=== PATIENT | female | born 2000 | race Caucasian/White ===

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

== ENCOUNTER 2019-02-18 07:50 | Emergency (ER) | payer MEDICAID, OTHER ==
[~2019-02-18] VITALS: Ht 162.6 cm; Wt 70.0 kg
[~2019-02-18 07:50] MED LIST changes: +SERT25TA PO
[2019-02-18 07:53] VITALS: BP 110/68
--- NOTE | 2019-02-18 08:01 | NUR ---
PT STATES "MY BOYFRIEND AND I LIVE IN A TENT AND I ASKED HIM TO GET ME WATER THIS MORNING AND HE DIDNT. IM CONCERNED IM DEHYDRATED" PT IS 9 WKS PER HER REPORT. PT DENIES SOB, CP, DIZZINESS
--- NOTE | 2019-02-18 09:21 | NUR ---
FHT ASSESSED BY L/D RN.
--- NOTE | 2019-02-18 11:32 | NUR ---
PT BACK FROM IMAGING, NAD NOTED. AWAITIN QUANT RESULTS, NO OTHER NEEDS
== END 2019-02-18 11:57 | disposition home or self-care (01) ==
LOC: ED 10:56
DX: O26.891 Other specified pregnancy related conditions, first trimester (principal); R55 Syncope and collapse; E86.0 Dehydration; G40.909 Epilepsy, unspecified, not intractable, without status epilepticus; Z3A.09 9 weeks gestation of pregnancy
CPT/HCPCS: 36415; 76801; 84702; 93005; 99284

== ENCOUNTER 2019-07-02 10:35 | Emergency (ER) | payer MEDICAID ==
[~2019-07-02] VITALS: Ht 162.6 cm; Wt 76.0 kg
[2019-07-02 10:59] VITALS: BP 125/64
--- NOTE | 2019-07-02 11:57 | NUR ---
[employer] DRIVER: PT AMBULATORY WITH STEADY GAIT TO ROOM FROM LOBBY AT THIS TIME.
--- NOTE | 2019-07-02 12:29 | NUR ---
PT SAME TO ED TO BE TESTED FOR STD. 24 WEEKS . PT PARTNER IS SHOWING SIGNS OF STD. PT CONNECTED TO MONITORING. UA COLLECTED AND SENT TO LAB. PT DENIES ANY SYMPTOMS.
[2019-07-02 12:34] LABS: BASOPHILS # (AUTO) 0.01 x10^3/uL (0-0.3); BASOPHILS % (AUTO) 0 % (0-1); EOSINOPHILS # (AUTO) 0.08 x10^3/uL (0-0.8); EOSINOPHILS % (AUTO) 1 % (1-7); LYMPHOCYTES # (AUTO) 1.39 x10^3/uL (1-6.1); LYMPHOCYTES % (AUTO) 22 % (22-44); MD NO; MEAN CORPUSCULAR HEMOGLOBIN 30.2 pg (27.0-34.8); MEAN CORPUSCULAR HGB CONC 34.3 g/dL (32.4-35.8); MEAN PLATELET VOLUME 7.9 fL (7.4-10.4); MONOCYTES # (AUTO) 0.28 x10^3/uL (0-1.4); MONOCYTES % (AUTO) 5 % (2-9); NEUTROPHILS % (AUTO) 72 % (42-75); PLATELET COUNT 316 x10^3/uL (130-400); RED BLOOD COUNT 3.74 x10^6/uL (3.82-5.3); RED CELL DISTRIBUTION WIDTH 15.7 % (9.6-15.2)
[2019-07-02 12:43] LABS: ALBUMIN 2.8 g/dL (3.4-5.0); ANION GAP 6 mmol/L (5-15); CALCIUM 8.7 mg/dL (8.5-10.1); CHLORIDE 109 mmol/L (98-107); CREATININE 0.73 mg/dL (0.55-1.02)
[2019-07-02 12:53] LABS: MICROSCOPIC NOT IND
--- NOTE | 2019-07-02 13:17 | NUR ---
THIS RN AT BEDSIDE DURING PELVIC EXAM WITH PROVIDER. PROVIDER COLLECTED SPECIMENS AND TOOK TO LAB HIMSELF. PT TOLLERATED WELL.
[2019-07-02] MEDS ORDERED: CEFTRIAXONE 250 MG IM ONE (13:30)
[2019-07-02] MEDS ORDERED: AZITHROMYCIN 250 MG TABLET ONE (13:30)
[2019-07-02] MEDS ORDERED: AZITHROMYCIN 500 MG TABLET PO ONE (13:30)
[2019-07-02] MEDS ORDERED: CEFTRIAXONE 250 MG ONE (13:30)
[2019-07-02] MEDS ORDERED: LIDOCAINE-MPF 1%, 5ML ONE (13:31)
--- NOTE | 2019-07-02 13:39 | NUR ---
[facility] ADMIN PER APR.
[2019-07-02 13:55] LABS: CLUE CELLS NONE SEEN (NONE SEEN); WET PREP WBCS FEW (FEW)
== END 2019-07-02 14:32 | disposition home or self-care (01) ==
LOC: ED 12:37
DX: O98.212 Gonorrhea complicating pregnancy, second trimester (principal); O98.312 Other infections with a predominantly sexual mode of transmission complicating pregnancy, second trimester; R10.2 Pelvic and perineal pain; G40.909 Epilepsy, unspecified, not intractable, without status epilepticus; Z3A.24 24 weeks gestation of pregnancy
CPT/HCPCS: 36415; 80048; 81003; 82040; 84702; 85025; 87210; 87491; 87591; 87808; 96372; 99283; J0696

== ENCOUNTER 2020-06-24 12:11 | Emergency (ER) | payer MEDICAID ==
[~2020-06-24] VITALS: Ht 162.6 cm; Wt 55.1 kg
[2020-06-24 12:14] VITALS: BP 124/89
[2020-06-24] MEDS ORDERED: LIDOCAINE-MPF 1%, 5ML INFIL ONE (13:00)
--- NOTE | 2020-06-24 13:24 | NUR ---
warp starter: pt from lobby to room 29 Addendum: 06/24/20 at 1326 by [facility] warp starter: attempted to room pt from lobby, pt now refusing to go to room
== END 2020-06-24 13:31 | disposition left against medical advice (07) ==
LOC: ED 13:13
DX: L02.31 Cutaneous abscess of buttock (principal)
CPT/HCPCS: 99281